=== PATIENT | female | born 1995 | race Caucasian/White ===

== ENCOUNTER 2019-02-21 22:53 | Emergency (ER) | payer BC ==
[2019-02-21] MEDS ORDERED: Ondansetron ODT 8 MG TAB ONE (23:16)
--- NOTE | 2019-02-24 15:03 | EKG ---
Test Reason : LIGHTHEADED Blood Pressure : / mmHG Vent. Rate : 079 BPM Atrial Rate : 079 BPM P-R Int : 126 ms QRS Dur : 080 ms QT Int : 380 ms P-R-T Axes : 027 001 024 degrees QTc Int : 435 ms Normal sinus rhythm Normal ECG Confirmed by SARAVANAN MASTERS ([id number]), photo editor FELISHA ARREDONDO ([id number]) on 02/24/2019 3:03:17 PM Referred By: Confirmed By:SARAVANAN MASTERS
== END 2019-02-22 00:17 | disposition home or self-care (01) ==
LOC: ERS 22:53
DX: R42 Dizziness and giddiness (principal); R19.7 Diarrhea, unspecified; R11.0 Nausea; F41.9 Anxiety disorder, unspecified; F31.9 Bipolar disorder, unspecified; Z79.899 Other long term (current) drug therapy
CPT/HCPCS: 93005